=== PATIENT | female | born 1935 | race Caucasian/White ===

== ENCOUNTER → 2017-02-01 | Outpatient (CLI) | payer OTHER, MEDICARE ==
[~2017-02-01] MED LIST: AMLO2.5T PO; BNC/40 PO; CALC600T9 PO; CHOL20007 PO; CRS10 PO; CYAN100020 PO; PARO10TA PO
--- NOTE | 2017-02-01 16:09 | MAMMOGRAPHY REPORT ---
BILATERAL DIGITAL SCREENING MAMMOGRAM WITH CAD: 02/01/2017 CLINICAL HISTORY: Routine screening. Patient has no complaints. TECHNIQUE: Current study was also evaluated with a Computer Aided Detection (CAD) system. Bilateral CC and MLO views were obtained. COMPARISON: Comparison is made to exams dated: 12/14/2014 ultrasound, 12/14/2014 mammogram - [facility], 10/05/2014 mammogram, 01/01/2014 mammogram, 07/13/2013 mammogram, and 06/25/2013 mamm ogram. BREAST COMPOSITION: There are scattered areas of fibroglandular density in both breasts. FINDINGS: No suspicious masses, calcifications, or areas of architectural distortion are noted in ei ther breast. There has been no significant interval change compared to prior exams. Scattered bilater al benign-appearing calcifications are not significantly changed. A biopsy marker clip is again note d in the left breast. IMPRESSION: ACR BI-RADS CATEGORY 2: BENIGN There is no mammographic evidence of malignancy. A 1 year screening mammogram is recommended. The pa tient will receive written notification of the results. Approximately 10% of breast cancers are not detected with mammography. A negative mammographic report should not delay biopsy if a clinically suggestive mass is present. Bianca Prescott M.D. /:02/01/2017 14:34:11 Fiberglass Machine Operator: Rama Galvan, [facility] letter sent: Normal 1/2 BI-RADS Code: ACR BI-RADS Category 2: Benign
== END | disposition home or self-care (01) ==
LOC: C.MAMM 10:15
PROVIDERS: ATTEND Obstetrics & Gynecology
DX: Z12.31 Encounter for screening mammogram for malignant neoplasm of breast (principal)

== ENCOUNTER 2017-05-26 15:52 | Emergency (ER) | payer OTHER, MEDICARE ==
[~2017-05-26] VITALS: Ht 157.5 cm; Wt 69.0 kg
[2017-05-26 16:00] VITALS: TEMP 36.6; Ht 157.5 cm; Wt 69.0 kg
--- NOTE | 2017-05-26 16:37 | DIAGNOSTIC IMAGING REPORT ---
R WRIST MIN 3 VIEWS ROUTINE CLINICAL HISTORY: Right wrist pain. Fall 3 weeks ago. COMPARISON: None FINDINGS: A 4 mm cyst within the scaphoid is noted. There is severe osteophytosis of the right first carpometacarpal articulation and the triscaphe joint. No acute fracture within the right wrist is identified. IMPRESSION: 1. No acute fracture or dislocation within the right wrist. 2. 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 Electronically signed by: Dale Alves M.D. 05/26/2017 4:36 PM Dictated Date/Time: 05/26/2017 4:34 PM
--- NOTE | 2017-05-26 16:39 | DIAGNOSTIC IMAGING REPORT ---
R HAND MIN 3 VIEWS ROUTINE CLINICAL HISTORY: R wrist pain x 3 days, no injury other than fall 3 w ago COMPARISON: None FINDINGS: No acute fracture is identified. There is marked joint space narrowing with osteophytosis within multiple interphalangeal joints of the right hand. This favors osteoarthritis. A few soft tissue calcifications are noted. IMPRESSION: 1. No acute fracture or dislocation within the right hand. 2. Severe osteoarthritis within multiple interphalangeal joints of the right hand. At several articulations, the appearance raises the possibility of erosive osteoarthritis. Electronically signed by: Dale Alves M.D. 05/26/2017 4:38 PM Dictated Date/Time: 05/26/2017 4:36 PM
--- NOTE | 2017-05-26 17:03 | EMERGENCY ROOM VISIT NOTE ---
History First contact with patient: 16:03 Chief Complaint: WRIST PAIN Stated Complaint: CANNOT LIFT RIGHT WRIST History of Present Illness The patient is a 81 year old female who presents to the Emergency Room via private vehicle accompanied by male with complaints of "cannot lift right wrist ". The patient states that 3 weeks ago she suffered a fall where she may have struck her right wrist. She notes no pain then, but 3 days ago with no inciting cause she began with right-sided wrist pain at the medial aspect of the distal right forearm. She rates the overall pain an 8/10. She notes it is worse with movements. She notes maybe perhaps a little swelling. She denies any history of gout, fevers, chills, redness. She denies any numbness or weakness. Review of Systems A complete 6-point Review of Systems was discussed with the patient, with pertinent positives and negatives listed in the History of Present Illness. All remaining Review of Systems questions can be considered negative unless otherwise specified. Past Medical/Surgical History Diabetes, Stomach problems Family History DM, Heart disease, CA Social History Smoking Status: Never Smoker Pt. lives locally with family. Current/Historical Medications Scheduled Amlodipine (Norvasc), 2.5 MG PO QAM Calcium Carbonate-Vitamin D (Calcium + D), 1 TAB PO LUNCH Cholecalciferol (Vitamin D3), 1 TAB PO DAILY Cyanocobalamin (Vitamin B12), 1 TAB PO DAILY Olmesartan Medoxomil (Benicar), 40 MG PO QAM Paroxetine Hcl (Paxil), 10 MG PO QAM Rosuvastatin Calcium (Crestor), 10 MG PO Q2D Physical Exam Vital Signs Date Time Temp Pulse Resp B/P (MAP) Pulse Ox O2 Delivery O2 Flow Rate FiO2 05/26/17 16:00 36.6 80 18 147/82 92 Room Air Physical Exam VITAL SIGNS - Vital signs and nursing notes were reviewed. Stable, GENERAL - 81-year-old female appearing her stated age who is in no acute distress. Communicates well with provider and answers questions appropriately. SKIN - Without rashes. R wrist unremarkable. EXTREMITIES - R wrist tenderness overlying ulnar styloid region extending through 5th metacarpal proximally. Good nutrition instructor strength. No proximal forearm or distal hand tenderness. +5/5 strength noted in UE/LE bilaterally. She is neurovascularly intact in the right hand and forearm. Full range of motion, with slight decrease ability to ulnar deviate and radial deviate secondary to pain. Medical Decision & Procedures ER Provider Diagnostic Interpretation: R HAND MIN 3 VIEWS ROUTINE CLINICAL HISTORY: R wrist pain x 3 days, no injury other than fall 3 w ago COMPARISON: None FINDINGS: No acute fracture is identified. There is marked joint space narrowing with osteophytosis within multiple interphalangeal joints of the right hand. This favors osteoarthritis. A few soft tissue calcifications are noted. IMPRESSION: 1. No acute fracture or dislocation within the right hand. 2. Severe osteoarthritis within multiple interphalangeal joints of the right hand. At several articulations, the appearance raises the possibility of erosive osteoarthritis. Electronically signed by: Dale Alves M.D. 05/26/2017 4:38 PM Dictated Date/Time: 05/26/2017 4:36 PM R WRIST MIN 3 VIEWS ROUTINE CLINICAL HISTORY: Right wrist pain. Fall 3 weeks ago. COMPARISON: None FINDINGS: A 4 mm cyst within the scaphoid is noted. There is severe osteophytosis of the right first carpometacarpal articulation and the triscaphe joint. No acute fracture within the right wrist is identified. IMPRESSION: 1. No acute fracture or dislocation within the right wrist. 2. 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 Electronically signed by: Dale Alves M.D. 05/26/2017 4:36 PM Dictated Date/Time: 05/26/2017 4:34 PM Medical Decision Patient was seen and evaluated as above. She presents to us today with right hand/wrist pain. It is reproducible on exam. Palpation and certain passive active range of motion movements of the right wrist. No evidence of DVT. No evidence of gout or infection. This appears to be ligamentous or perhaps bone in nature. X-ray results as above. No acute fracture. Severe degenerative changes. I suspect ligamentous sprain. She is to follow with orthopedics. It is also possible she is experiencing pain secondary to osteoarthritis. Orthopedic number provided for her to call to arrange follow-up. She was given a wrist lacer. I believe that a short course of immobilization will be beneficial. She was also seen by the attending physician. She was educated upon management, educated upon worrisome symptoms in which to return, had questions and provided discharge, and was discharged home in good condition. In the evaluation and treatment of this patient, the following differential diagnoses were considered: Wrist Sprain, Wrist Fracture, Wrist Dislocation, Scapholunate Dissociation, Carpal Fracture, Metacarpal Fracture, Radial Styloid Process Fracture, Ulnar Styloid Process Fracture, or Carpal Tunnel Syndrome. Patient medication list was reviewed. She was found to be hypertensive which I believe secondary to situation. Impression Primary Impression: Wrist pain, right Departure Information Dispostion Home / Self-Care Condition GOOD Referrals Jeremy Harkins M.D. (PCP) Christian Yao M.D. Patient Instructions My [facility] Additional Instructions You have been treated in the Emergency Department for Wrist Pain. For pain control, you can use the following [id number] medicines : - Regular strength (325mg/tab) Tylenol (acetaminophen) 2 tabs every 4-6 hours as needed. Do not exceed 12 tablets in a 24 hour period. Avoid taking more than 3 grams (3000 mg) of Tylenol per day. This includes any other sources of acetaminophen you may take on a regular basis. If this is a recent injury (<24 hrs), ice can be applied to the area of pain for the first 3 days to help decrease pain and inflammation. You have been provided the number for an Orthopaedic Surgeon. You should call this number as soon as possible to establish a follow-up visit from today's Emergency Department visit. Keep the brace/splint in place until evaluated by Orthopedics. Return to the Emergency Department if your current symptoms worsen despite treatment course outlined above, or if you develop any of the following symptoms : intractable pain despite aforementioned treatment course or new onset of numbness or tingling of the fingers. R HAND MIN 3 VIEWS ROUTINE CLINICAL HISTORY: R wrist pain x 3 days, no injury other than fall 3 w ago COMPARISON: None FINDINGS: No acute fracture is identified. There is marked joint space narrowing with osteophytosis within multiple interphalangeal joints of the right hand. This favors osteoarthritis. A few soft tissue calcifications are noted. IMPRESSION: 1. No acute fracture or dislocation within the right hand. 2. Severe osteoarthritis within multiple interphalangeal joints of the right hand. At several articulations, the appearance raises the possibility of erosive osteoarthritis. R WRIST MIN 3 VIEWS ROUTINE CLINICAL HISTORY: Right wrist pain. Fall 3 weeks ago. COMPARISON: None FINDINGS: A 4 mm cyst within the scaphoid is noted. There is severe osteophytosis of the right first carpometacarpal articulation and the triscaphe joint. No acute fracture within the right wrist is identified.
[2017-05-26 17:13] VITALS: BP 133/82; PULSE 80; O2SAT 96
== END 2017-05-26 17:15 | disposition home or self-care (01) ==
LOC: C.EDB 15:53 → C.EDD 17:15
DX: M25.531 Pain in right wrist (principal); M19.031 Primary osteoarthritis, right wrist; M18.11 Unilateral primary osteoarthritis of first carpometacarpal joint, right hand; E11.9 Type 2 diabetes mellitus without complications; Z83.3 Family history of diabetes mellitus

== ENCOUNTER 2017-10-10 12:05 | Emergency (ER) | payer OTHER, MEDICARE ==
[~2017-10-10] VITALS: Ht 152.4 cm; Wt 67.5 kg
[2017-10-10 12:08] VITALS: TEMP 36.9; Ht 152.4 cm; Wt 67.5 kg
[2017-10-10] MEDS ORDERED: PARO20TA PO (12:36)
[2017-10-10] MEDS ORDERED: ACETAMINOPHEN 500 MG TAB ONE (12:41)
--- NOTE | 2017-10-10 12:42 | DIAGNOSTIC IMAGING REPORT ---
L WRIST W/NAVICULAR MIN 3 VIEWS HISTORY: 82 years-old Female LEFT WRIST INJUR acute left wrist pain COMPARISON: Left hand radiographs 06/02/2015 TECHNIQUE: 4 views of the left wrist FINDINGS: There is an acute comminuted mildly impacted fracture of the distal radial metaphysis with fracture lines extending into both the radiocarpal and distal radioulnar joints. There is 9 mm dorsal displacement with apex volar angulation of 25 degrees. Acute minimally displaced fracture involves the base of the ulnar styloid with mild apex volar regulation. The bones appear mildly demineralized. No additional acute fracture or dislocation identified. Moderate soft tissue swelling about the distal forearm and wrist. Subcortical cystic changes about the scaphoid. Moderate to severe osteoarthritis about the first carpal metacarpal joint. IMPRESSION: 1. Acute comminuted displaced, angulated and mildly impacted fracture of the distal radius. 2. Acute minimally displaced and angulated fracture of the ulnar styloid. The above report was generated using voice recognition software. It may contain grammatical, syntax or spelling errors. Electronically signed by: Akil Calzada M.D. 10/10/2017 12:41 PM Dictated Date/Time: 10/10/2017 12:37 PM
--- NOTE | 2017-10-10 12:45 | EMERGENCY ROOM VISIT NOTE ---
ED Visit Note First contact with patient: 12:11 CHIEF COMPLAINT: Left wrist injury HISTORY OF PRESENT ILLNESS: This 82-year-old female patient presents to the emergency department, ambulatory, complaining of pain in the left wrist after fall on outstretched hand. Patient states she was outside in her garden when she stood up, tripped over her own feet, and fell. The patient is not able to move their wrist. The patient states the pain is sharp and 10/10. No laceration , no weakness. No numbness or tingling. The patient denies any other injury. The patient is able to move their fingers and elbow without difficulty. The patient has not had a previous fracture to this wrist. The patient has taken nothing for the pain. REVIEW OF SYSTEMS: A 6 system review of systems was performed with positives and pertinent negatives in the HPI. ALLERGIES: None MEDICATIONS: Amlodipine, calcium, vitamin D, vitamin B12, Benicar, Paxil, Crestor PMH: Hypertension, anxiety, hyperlipidemia SOCIAL HISTORY: The patient lives locally with family. She denies drug, alcohol , tobacco use. PHYSICAL EXAM: Vital Signs: Reviewed Nurse's notes, vital signs stable. GENERAL : This is an 82-year-old white female, in no acute distress, but appears to be in pain, well-developed, well-nourished. NEURO: Alert and oriented to person place and time. Normal sensation to light and sharp touch. MUSCULOSKELETAL: There is a moderate deformity of the left wrist. There is tenderness and edema over the distal radius and ulna. There is no snuff box tenderness. Range of motion is limited due to pain. There is no tenderness of the elbow, hand or fingers. Research Computing Specialist strength 4/5. Radial pulse 2+. SKIN: Normal and intact. The hand is warm and well perfused with capillary refill less than 2 seconds. RADIOLOGY: L WRIST W/NAVICULAR MIN 3 VIEWS HISTORY: 82 years-old Female LEFT WRIST INJUR acute left wrist pain COMPARISON: Left hand radiographs 06/02/2015 TECHNIQUE: 4 views of the left wrist FINDINGS: There is an acute comminuted mildly impacted fracture of the distal radial metaphysis with fracture lines extending into both the radiocarpal and distal radioulnar joints. There is 9 mm dorsal displacement with apex volar angulation of 25 degrees. Acute minimally displaced fracture involves the base of the ulnar styloid with mild apex volar regulation. The bones appear mildly demineralized. No additional acute fracture or dislocation identified. Moderate soft tissue swelling about the distal forearm and wrist. Subcortical cystic changes about the scaphoid. Moderate to severe osteoarthritis about the first carpal metacarpal joint. IMPRESSION: 1. Acute comminuted displaced, angulated and mildly impacted fracture of the distal radius. 2. Acute minimally displaced and angulated fracture of the ulnar styloid. The above report was generated using voice recognition software. It may contain grammatical, syntax or spelling errors. Electronically signed by: Akil Calzada M.D. 10/10/2017 12:41 PM Dictated Date/Time: 10/10/2017 12:37 PM EMERGENCY DEPARTMENT COURSE: I examined the patient. An X-ray of the left wrist was reviewed by myself and radiologist and showed acute displaced, angulated fractures of the distal radius and ulnar styloid. I discussed these findings with the patient at bedside. She initially had declined offers for pain medication, but does request Tylenol after the x-rays. I discussed the case with Dr. Lim who reviewed the x-rays and recommended a sugar tong splint and close orthopedic follow-up outpatient. A sugar tong Ortho-Glass splint was placed under my direction and the position was satisfactory. Neurovascular status rechecked and intact. The patient was discharged home in good condition. I attest that I have personally reviewed the patient's current medication list. Patient was found to have normal blood pressure on screening and does not require follow-up. Etiologies such as soft tissue injury, fracture, dislocation, neurovascular compromise, compartment syndrome, as well as others were entertained. DIAGNOSIS: left Distal radius and ulna fracture The chart was completed utilizing [employer] voice recognition software. Grammatical errors, random word insertions, pronoun errors, and incomplete sentences are an occasional consequence of this system due to software limitations, ambient noise, and hardware issues. Any formal questions or concerns about the content, text, or information contained within the body of this dictation should be directly addressed to the provider for clarification. Current/Historical Medications Scheduled Amlodipine (Norvasc), 2.5 MG PO QAM Calcium Carbonate-Vitamin D (Calcium + D), 1 TAB PO LUNCH Cholecalciferol (Vitamin D3), 1 TAB PO DAILY Cyanocobalamin (Vitamin B12), 1 TAB PO DAILY Olmesartan Medoxomil (Benicar), 40 MG PO QAM Paroxetine Hcl (Paxil), 20 MG PO DAILY Rosuvastatin Calcium (Crestor), 10 MG PO Q2D Scheduled PRN Oxycodone Ir (Roxicodone Ir), 1 TAB PO Q4H PRN for Pain Allergies Coded Allergies: No Known Allergies (Unverified , 10/10/17) Vital Signs Date Time Temp Pulse Resp B/P (MAP) Pulse Ox O2 Delivery O2 Flow Rate FiO2 10/10/17 13:54 72 16 161/101 96 10/10/17 12:08 36.9 88 18 152/80 93 Room Air Medications Administered Medications (Trade) Dose Ordered Sig/Ralph Route Start Time Stop Time Status Last Admin Dose Admin Acetaminophen (Tylenol Tab) 1,000 mg STK-MED ONCE .ROUTE 10/10/17 12:41 10/10/17 12:42 DC 10/10/17 12:50 1,000 MG Departure Information Impression Primary Impression: Fracture of distal radius and ulna Dispostion Home / Self-Care Condition GOOD Prescriptions Oxycodone Ir (Roxicodone Ir) 5 Mg Tab 1 TAB PO Q4H Y for Pain, #15 TAB For Initial Treatment Prov: Geri Clemente, MARCOS 10/10/17 Referrals Jeremy Harkins M.D. (PCP) Kevin Ludwig MD Patient Instructions ED Fx Forearm Radius Ulna No Redu Requ, ED Splint Care Fiberglass, [facility] Additional Instructions You were seen in the emergency department today for a fracture of your distal radius and ulna. These are the forearm bones. Oxycodone (OxyIR) 5mg: Take 1 pill every four to six hours as needed for breakthrough pain. Avoid alcohol, operating machinery or dangerous equipment, working on ladders or roofs, DRIVING, or situations where being under the influence may be dangerous. It is recommended to use an [id number]-[id number] stool softener such as Colace, 100mg twice daily while taking this medication to avoid constipation. Acetaminophen(Tylenol) may be used for fever or pain. Use 1000mg every six hours as needed. Avoid using more than 3000mg in a 24 hour period. Ice compresses for 20 minutes at a time four times daily for 2-3 days. Use the sling as instructed. Remove your arm from the sling 4-6 times a day and move all the joints around to keep them loose. Rest and elevate your injury. Do not get the splint wet. If your splint feels excessively tight, you have worsening pain, develop numbness or tingling, or your digits appear blue, loosen the regla wrap. Then reapply the regla wrap gently without removing the splint. If your symptoms are not quickly relieved return to the ER for re- evaluation. Return to the ER immediately for any numbness, tingling, severe pain, extreme swelling in the extremity or as needed. Call [facility], [phone], when you leave here today to arrange follow up for your injury. Problem Qualifiers Primary Impression: Fracture of distal radius and ulna Encounter type: initial encounter Fracture type: closed Laterality: left Qualified Codes: S52.502A - Unspecified fracture of the lower end of left radius, initial encounter for closed fracture; S52.602A - Unspecified fracture of lower end of left ulna, initial encounter for closed fracture
--- NOTE | 2017-10-10 13:24 | EMERGENCY ROOM VISIT NOTE ---
ED Visit Note First contact with patient: 12:11 I did evaluate and examine this patient myself. I did guide management for the patient. I agree with the PA's assessment as discussed. Please see the PAs dictation for further details. I did independently review the x-rays. She does have a distal radial fracture as well as an ulnar styloid fracture. The case was discussed with orthopedics who recommended a sugar tong splint and outpatient follow-up.
[2017-10-10] MEDS ORDERED: OXYC1TAB3 PO (13:33)
[2017-10-10 13:54] VITALS: BP 161/101; PULSE 72; O2SAT 96
== END 2017-10-10 13:56 | disposition home or self-care (01) ==
LOC: C.EDB 12:06 → C.EDD 13:56
DX: S52.502A Unspecified fracture of the lower end of left radius, initial encounter for closed fracture (principal); S52.612A Displaced fracture of left ulna styloid process, initial encounter for closed fracture; W18.09XA Striking against other object with subsequent fall, initial encounter; Y92.017 Garden or yard in single-family (private) house as the place of occurrence of the external cause; I10 Essential (primary) hypertension; F41.9 Anxiety disorder, unspecified; E78.5 Hyperlipidemia, unspecified; Z79.899 Other long term (current) drug therapy

== ENCOUNTER → 2017-12-04 | Outpatient (CLI) | payer OTHER, MEDICARE ==
[~2017-12-04] MED LIST changes: +OXYC-90 PO; -PARO10TA PO; +PARO20TA PO
--- NOTE | 2017-12-04 14:53 | DIAGNOSTIC IMAGING REPORT ---
CHEST 2 VIEWS ROUTINE HISTORY: Chronic iridocyclitis. Assess for tuberculosis. COMPARISON: None. FINDINGS: Mild levoscoliosis of the thoracic spine. Old, healed left-sided rib fractures. No pleural effusions. No pneumothorax. The heart is normal in size. No focal lung consolidations to suggest pneumonia. No evidence for pulmonary edema. 3.4 cm round lucent focus within the base of the left lower lobe. This favors a a small bulla or pneumatocele. IMPRESSION: 1. No acute process within the chest. 2. There is a 3.4 cm round lucent focus within the base of the left lower lobe. This favors a a small bulla or pneumatocele. Electronically signed by: Kvng San M.D. 12/04/2017 2:52 PM Dictated Date/Time: 12/04/2017 2:49 PM
== END | disposition home or self-care (01) ==
LOC: C.RADBC 14:17
PROVIDERS: ATTEND Ophthalmology
DX: H20.11 Chronic iridocyclitis, right eye (principal)

== ENCOUNTER 2022-08-22 05:14 | Observation (INO) ==
--- NOTE | 2022-08-17 09:45 | Anesthesiology Consultation ---
Date of Service August 17, 2022 Assessment & Plan (1) Encounter for pre-operative examination: - check BSG am DOS. - PCP clearance 08/08/22: "...is patient medically cleared for surgery...yes...preoperative risk assessment note...right total knee replacement...acceptable risk for the listed procedure..." - Case discussed with Dr. Birmingham who advised patient can proceed at current status, does not need further testing or evaluation from his standpoint. - COVID screening: Per set up inspector on 08/16/2022: Travel screen negative, no known COVID-19 positive contacts or current COVID-19 related symptoms in past 2 weeks. To surgeon's discretion if preop COVID testing is needed. - Outpatient joint assessment: Patient is currently scheduled for inpatient pathway. If re-evaluated pending system levels during current pandemic/surgeon requests outpatient pathway, patient is not recommended candidate for outpatient joint program from anesthesia standpoint. Chart Review Chart Review: Acceptable Risk for Surgery and Patient NOT seen in Pre Admission Testing History Surgery Operation Date: 08/22/22 09:20 Proposed Procedures p Right Total Knee Arthroplasty - Darinel Barr MD Height/Weight Height: 5 ft Weight: 62.142 kg Allergies Allergy/AdvReac Type Severity Reaction Status Date / Time [id number] Reductase Allergy Intermediate itchy Verified 08/16/22 15:03 Inhibitor amlodipine Allergy Intermediate itching,magdalena Uncoded 08/17/22 09:49 ma Medications Home Medications Medication Instructions Recorded Confirmed Last Taken albuterol sulfate 90 mcg/actuation 2 puff inhalation Q6H PRN Wheezing 07/19/21 08/16/22 Unknown aerosol inhaler alprazolam 0.25 mg tablet 0.25 mg PO DAILY PRN Anxiety 07/19/21 08/16/22 Unknown cyclobenzaprine 5 mg tablet 5 mg PO DAILY PRN Spasms 07/19/21 08/16/22 Unknown diphenhydramine 25 2 tab PO HS PRN Sleep 07/19/21 08/16/22 Unknown mg-acetaminophen 500 mg tablet (Tylenol PM Extra Strength) duloxetine 60 mg capsule,delayed 60 mg PO QAM 07/19/21 08/16/22 Unknown release (Cymbalta) ezetimibe 10 mg tablet (Zetia) 10 mg PO QAM 07/19/21 08/16/22 Unknown losartan 50 mg tablet 50 mg PO QAM 07/19/21 08/16/22 Unknown prednisolone acetate 1 % eye 1 drp ophthalmic (eye) DAILY 07/19/21 08/16/22 Unknown drops,suspension vitamin E 200 unit capsule 200 unit PO QAM 07/19/21 08/16/22 Unknown pantoprazole 40 mg tablet,delayed 40 mg PO DAILY PRN Acid Reflux 09/18/21 08/16/22 Unknown release cholecalciferol (vitamin D3) 50 50 mcg PO QAM 04/06/22 08/16/22 Unknown mcg (2,000 unit) tablet (Vitamin D3) cyanocobalamin (vitamin B-12) 500 500 mcg PO QAM 04/06/22 08/16/22 Unknown mcg tablet denosumab 60 mg/mL subcutaneous 60 mg subcut DIRECTED 04/06/22 08/16/22 Unknown syringe (Prolia) fluticasone propionate 50 1 spray intranasal Q12H PRN 04/06/22 08/16/22 Unknown mcg/actuation nasal Congestion spray,suspension Past Medical History Medical History (Updated 08/17/22 @ 09:49 by Sarah Montiel PA-C) Anxiety Asthma using more often in winter due to cold air CKD (chronic kidney disease) stage 3, GFR 30-59 ml/min Degenerative disc disease, cervical Diabetes diet controlled 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 No other treatment needed Osteoporosis Past Family History Family History Mother Cancer Breast Other Heart disease Past Surgical History Surgical History History of cataract surgery bilat History of colonoscopy History of dilatation and curettage several History of lumpectomy of left breast History of surgery on wrist left Social History Smoking Status: Never smoker Do You Dip or Chew Tobacco: No Hx Alcohol Use: Yes Alcohol type: wine alcohol intake frequency: a few times a week Hx Substance Use: No substance use type: does not use Lab Results Anesthesia Preop Results Results Anesthesia Widget: WBC 10.41 K/ul (4.8-10.8) 08/06/22 Hgb 11.4 g/dl (12.0-16.0) L 08/06/22 Hct 35.0 % (37.0-47.0) L 08/06/22 Plt 384 K/uL (130-400) 08/06/22 Na 141 mmol/L (136-145) 08/06/22 K 3.9 mmol/L (3.5-5.1) 08/06/22 Cl 105 mmol/L (98-107) 08/06/22 CO2 29 mmol/L (21-32) 08/06/22 BUN 27 mg/dl (6-23) H 08/06/22 Creat 1.56 mg/dl (0.6-1.2) H 08/06/22 Glucose Level 80 mg/dl (70-99(Fasting)) 08/06/22 PT 10.5 Seconds (9.0-12.0) 08/06/22 PTT 24.6 Seconds (21.0-31.0) 08/06/22 INR 1.0 (0.9-1.1) 08/06/22 TSH 1.548 uIu/ml (0.300-4.500) 06/21/22 Urine Color Yellow 08/06/22 Urine Appearance Clear (Clear) 08/06/22 Urine pH 5.5 (4.5-7.5) 08/06/22 Urine Specific Bixby 1.020 (1.000-1.030) 08/06/22 Urine Protein Trace (Negative) H 08/06/22 Urine Glucose (UA) Negative (Negative) 08/06/22 Urine Ketones Negative (Negative) 08/06/22 Urine Blood Negative (Negative) 08/06/22 Urine Nitrite Negative (Negative) 08/06/22 Urine Bilirubin Negative (Negative) 08/06/22 Urine Urobilinogen Negative (Negative) 08/06/22 Urine Leukocyte Esterase Trace (Negative) H 08/06/22 Urine WBC (Auto) 1-5 /hpf (0-5) 08/06/22 Urine RBC (Auto) 0-4 /hpf (0-4) 08/06/22 Urine Hyaline Casts (Auto) 1-5 /lpf (0-5) 08/06/22 Urine Epithelial Cells (Auto) >30 /lpf (0-5) H 08/06/22 Urine Bacteria (Auto) Negative (Negative) 08/06/22 Blood Type A Positive 08/06/22 Antibody Screen NEGATIVE 08/06/22 Testing Electrocardiogram Date: 06/21/22 Poor data quality Sinus rhythm with frequent PVCs, rate 90 bpm Inferior infarct, cited on or before 04/16/22 Cannot rule out anterior infarct, age undetermined Chest X-Ray Date: 04/16/22 Cardiac silhouette is enlarged. No pneumothorax or overt pulmonary edema. There is unchanged chronic blunting of the costophrenic angles. Stable 3.4 cm benign appearing bulla of the left lung base. Chronic interstitial coarsening of the lung bases. No airspace consolidation typical for pneumonia. Chronic left lateral rib deformities. Degenerative changes of the shoulders and spine. Hiatal hernia. IMPRESSION: No acute process. Echocardiogram Date: 07/10/22 EF 60-64% Normal LV wall motion Grade I diastolic dysfunction Basal septum is thickened and angulated consistent with sigmoid septum Mild cLVH Mild aortic valve sclerosis Mild mitral regurgitation Cervical Spine Date: 06/21/22 CT Multilevel degenerative changes include severe disc space narrowing at C5-C6 and C6-C7. Moderate multilevel spondylitic spurring with posterior disc osteophyte complex formations. Moderate to severe multilevel facet arthrosis. Multilevel neural foraminal narrowing. No acute cervical spine fracture or subluxation. The cervical soft tissues appear unremarkable 1.5 cm right-sided thyroid nodule. The visualized lung apices appear clear. IMPRESSION: No acute cervical spine fracture or subluxation identified. Other Testing Head CT 06/21/22 No acute intracranial abnormality or calvarial fracture.
[2022-08-22] MEDS ORDERED: LR 60ML/HR IV SCH (06:00)
[2022-08-22] MEDS ORDERED: ceFAZolin 2000MG 2,000 MG/15 ML SYR IV SCH (06:00)
[2022-08-22] MEDS ORDERED: TRANEXAMIC ACID 1,000 MG **IV Pre-op IV SCH (06:00)
[2022-08-22] MEDS ORDERED: ROPIVACAINE 0.5% HCL/PF 150 MG, BUPIVACAINE 0.75% MPF 20 ML, EPINEPHrine 0.15 MG, Ketor... INFIL SCH (06:00)
[2022-08-22] MEDS ORDERED: SODIUM CHLORIDE 0.9% 1000ML IV SCH (06:00)
[2022-08-22] MEDS ORDERED: BUPIVACAINE 0.5 % 5 MG/1 ML PF 10ML VIAL ONE (06:17)
[2022-08-22] MEDS ORDERED: ROPIVACAINE 0.5% 5 MG/ML 30 ML VIAL ONE (06:18)
--- NOTE | 2022-08-22 06:31 | History & Physical Bridge Note ---
Date of Service August 22, 2022 History & Physical Bridge Note I have examined the patient, reviewed the History & Physical and in the interval since the performance of the History & Physical I have noted the following changes of clinical significance:consent obtained/site verified/ no changes noted
[2022-08-22] MEDS ORDERED: MIDAZOLAM HCL 1 MG/ML 2ML VIAL ONE ×3 (06:35→15:17)
[2022-08-22] MEDS ORDERED: fentaNYL citrate PF 100 MCG/2 ML VIAL IV PRN (06:41)
[2022-08-22] MEDS ORDERED: ONDANSETRON INJ 2 MG/ML 2 ML VIAL IV PRN ×2 (06:41→10:05)
[2022-08-22] MEDS ORDERED: ATROPINE SULFATE 0.1 MG/ML 10ML SYR IV PRN (06:41)
[2022-08-22] MEDS ORDERED: ePHEDrine sulfate 50 MG/ML AMP IV PRN (06:41)
[2022-08-22] MEDS ORDERED: ORTHO JOINT ANESTHETIC ONE (06:45)
[2022-08-22] MEDS ORDERED: PROPOFOL IV EMULSION 10 MG/ML 20 ML VIAL IV ONE (07:39)
--- NOTE | 2022-08-22 08:25 | Post Operative Brief Note ---
Immediate Post Op Note v1 Date of Surgery August 22, 2022 Pre & Post Diagnosis Operation Date: 08/22/22 07:00 <No data on this case meets the specified criteria> I identified the patient and participated in the time-out.: Yes Procedure Operation Date: 08/22/22 07:00 <No data on this case meets the specified criteria> Surgeon Darinel Barr MD [employer] [facility] Estimated Blood Loss 25 Findings Consistent with Post-Op Diagnosis
--- NOTE | 2022-08-22 08:34 | Operative Report ---
Post Operative Report Pre & Post Diagnosis Operation Date: 08/22/22 07:00 Pre-Op Diagnosis: Right Knee Degenerative Joint Disease Post-Op Diagnosis: Right Knee Degenerative Joint Disease I identified the patient and participated in the time-out.: Yes Procedure Operation Date: 08/22/22 07:00 Actual Procedures p Right Total Knee Arthroplasty, Cemented(Right) - Darinel Barr MD Surgeon ZAY Barr MD [employer] Karen RODRÍGUEZ Estimated Blood Loss 25 Findings Consistent with Post-Op Diagnosis see operative report Specimens see operative report Drains none Complications none Disposition Accompanied Patient To Recovery: Yes Indications This 87 year old female presented the office with complaints of persisting right knee pain. She had tried conservative care measures without improvement. She elected to proceed with surgical intervention after being educated about potential risks and outcomes. Preoperative imaging was obtained. She was initially scheduled for this procedure in April but had to cancel and reschedule due to a significant fall. Description of Procedure The patient was given a spinal anesthetic and then was taken to the operating room where she was given sedation. She was prepped and draped in the usual sterile fashion. Please see Dr. Barr's operative report for specifics of the procedure. I was present for the entire case from initial patient positioning through final wound closure. Assistance was provided in tissue retraction, hemostasis, trial implant placement, final implant placement, and final wound closure. Patient was taken to the recovery room in satisfactory condition. I attest to the content of the Intraoperative Record and any orders documented therein. Any exceptions are noted below.
--- NOTE | 2022-08-22 08:48 | Operative Report (OR) ---
DATE OF PROCEDURE: 08/22/2022. SURGEON: Darinel Barr MD. SQL DATA ANALYST: HEATH Iraheta. No resident or fellow available. PREOPERATIVE DIAGNOSIS: Osteoarthritis, right knee, with varus deformity. POSTOPERATIVE DIAGNOSIS: Osteoarthritis, right knee, with varus deformity. OPERATION PERFORMED: Cemented right total knee replacement. PERIOPERATIVE SITUATION: Medically cleared female with intractable knee pain, has physical exam, x-r ay consistent with severe end-stage disease. SUMMARY OF IMPLANTS: Right size 2 posterior cruciate substituting tibial tray, size 2 rotating platf orm oval dome, 3-peg patella, size 38 tibial insert rotating platform size 2, 10 mm thick posterior c ruciate stabilizing two bags of Palacos G cement. DePuy J and J rotating platform total knee system. DESCRIPTION OF PROCEDURE: The patient was appropriately identified, site verified, consent verified. Antibiotics were confirmed as being given. The right lower extremity was prepped and draped in the usual routine fashion. There was no major flexion deformity, but she had a varus alignment. Once i t, was prepped and draped in usual routine fashion. Tourniquet was inflated to 275 mmHg after exsang uination of the limb with a rubber Esmarch bandage for a total of 46 minutes. Midline exposure was u tilized. Parapatellar arthrotomy performed. Synovectomy completed, osteophytes resected. Distal fe mur entered. Cruciates resected. Tibia was subluxated, menisci resected. Osteophytes were removed from the medial side of the femur and the tibia. Appropriate soft tissue release was performed media lly. Distal femur was then entered with drill bit and then the distal femur resected 12 mm, proximal tibia subluxated resected 4 mm, the extension gap was excellent. The femur was then sized between 2 and a 2.5 was measured. It was measured 2.5, cut 2 with no notching. The flexion gap was then chec ked, it was excellent. The tibia was a size 2 as well. The box cut was then made. Rotation was exc ellent. The tibia was then broached and reamed to a size #2. Trial spacer with a 10 revealed excelle nt tracking and excellent stability and mid range stability. The knee had range of motion from 0-120 degrees. The patella was then resected leaving about 13-14 mm. A seating hole made for the button and the button tracked well. The Orthomix was then injected all about the knee. The implants were t hen removed and soaked, the knee was soaked in Betadine for 2.5 minutes and then irrigated and then t he permanent cemented into position tibia, femur, and patella in that order. At 12 minutes, the tour niquet deflated. No major bleeding encountered at 14 minutes, the knee was flexed. No cement remova l required. Knee was irrigated. After the spacer was removed with the Pulsavac and then Betadine an d the permanent liner seated, knee reduced and closed at 40 degrees of flexion with #2 Vicryl, 2-0 Vi cryl and stainless steel clips. Appropriate dressing applied. The patient was transferred to [facility] ry room in satisfactory condition, having tolerated the procedure well. DVT prophylaxis per protocol . Bone pathology pending mobilized FELIPE. Job ID: [id number]
--- NOTE | 2022-08-22 08:55 | Progress Notes ---
SUBJECTIVE: Postop check status post right total knee replacement. The patient is resting comfortab ly in bed in the PACU. She denies any chest pain, shortness of breath, fever, chills, nausea, vomiti ng or headache. OBJECTIVE: VITAL SIGNS: Stable. She is afebrile. Wound dressing clean, dry and intact. Neurovascular check is limited by spinal. Toes were pink and warm. IMAGING: X-ray AP and lateral knee reveals excellent alignment of total knee replacement. Appropria te sizing. ASSESSMENT AND PLAN: Overall, doing well. Continue with care pathway and start Coumadin this kenny guillen Case management has been involved regarding potential placement. Discharge tomorrow. Job ID: [id number]
--- NOTE | 2022-08-22 09:10 | Discharge Summary (DS) ---
DATE OF ADMISSION: 08/22/2022. DATE OF POTENTIAL DISCHARGE: 08/23/2022. CHIEF COMPLAINT: Right knee pain. HISTORY OF PRESENT ILLNESS: Underwent elective right total knee replacement. To date, there have been no issues. REVIEW OF SYSTEMS: Reveals no major findings, chest pain, shortness of breath, fever, chills, nausea, vomiting or headache. PAST MEDICAL HISTORY: Remarkable for hypercholesterolemia, GERD, bilateral knee osteoarthritis, seborrheic keratosis, dermatitis, hypertension, history of melanoma, history of osteoporosis. PAST SURGICAL HISTORY: Include skin biopsies, wrist and eye surgery. ALLERGIES: AMLODIPINE AND STATINS. PREADMISSION MEDICATIONS: Include alprazolam, Cymbalta, albuterol, vitamins, cyanocobalamin, cyclobenzaprine, ezetimibe, losartan and vitamins. HOSPITAL COURSE: Uneventful, status post right total knee replacement. Continue with postoperative care pathway. Discharge per Byproducts Supervisor/Case Management. DVT prophylaxis per protocol. Follow up in 2 weeks for staple removal. Job ID: [id number] [facility]
--- NOTE | 2022-08-22 09:47 | Anesthesiology Progress Note ---
Date of Service August 22, 2022 Anesthesia Post Procedure Vital Signs Vital Signs: Temp Pulse Pulse Resp BP Pulse Ox O2 Del Method 08/22/22 09:30 97.5 F L 64 14 166/79 H 97 Room Air 08/22/22 09:20 65 18 132/77 97 Room Air 08/22/22 09:10 66 18 164/77 H 95 Room Air 08/22/22 09:00 65 13 145/70 H 100 Oxymask 08/22/22 08:50 65 17 151/70 H 100 Oxymask 08/22/22 08:40 68 21 140/77 100 Oxymask 08/22/22 08:32 97.3 F L 78 20 123/70 99 Oxymask 08/22/22 06:06 97.9 F 83 20 164/81 H 96 Room Air O2 Flow Rate 08/22/22 09:30 08/22/22 09:20 08/22/22 09:10 08/22/22 09:00 4 08/22/22 08:50 5 08/22/22 08:40 7 08/22/22 08:32 7 08/22/22 06:06 Transfer of Care Handoff Completed per policy Notes Mental Status: alert / awake / arousable and participated in evaluation Patient Amnestic to Procedure: Yes Nausea / Vomiting: adequately controlled Pain: adequately controlled Airway Patency, RR, SpO2: stable & adequate BP & HR: stable & adequate Hydration State: stable & adequate Neuraxial Anesthesia: was administered and sensory block is resolving Anesthetic Complications: no major complications apparent and Pt Satisfied with anesthetic care
[2022-08-22] MEDS ORDERED: NALOXONE HCL 0.4 MG/1 ML VIAL/CARP IV PRN (10:05)
[2022-08-22] MEDS ORDERED: ALPRAZolam 0.25 MG TABLET PO PRN (10:05)
[2022-08-22] MEDS ORDERED: ALBUTEROL HFA 8 GM INHALER INH PRN (10:05)
[2022-08-22] MEDS ORDERED: diphenhydrAMINE 50 MG/ML VIAL IV PRN (10:05)
[2022-08-22] MEDS ORDERED: HYDROmorphone INJ 0.5 MG/0.5 ML SYR IV PRN (10:05)
[2022-08-22] MEDS ORDERED: CYCLOBENZAPRINE HCL 5 MG TAB PO PRN (10:05)
[2022-08-22] MEDS ORDERED: bisacodyL 10 MG SUPP PR PRN (10:05)
[2022-08-22] MEDS ORDERED: SODIUM CHLORIDE 0.9% 1000ML 1,000 ML IV SCH (10:05)
[2022-08-22] MEDS ORDERED: METOCLOPRAMIDE HCL INJ 5 MG/ML 2 ML VIAL IV PRN (10:05)
[2022-08-22] MEDS ORDERED: FLUTICASONE PROPIONATE NA SPR 16 GM BTL NAE PRN (10:05)
[2022-08-22] MEDS ORDERED: MAGNESIUM HYDROXIDE SUSP 30 ML UDC PO PRN (10:05)
[2022-08-22] MEDS ORDERED: ALUMINUM/MAGNESIUM SUSP 30 ML UDC PO PRN (10:05)
--- NOTE | 2022-08-22 10:29 | XRay Report ---
XR knee RT 1 or 2V routine CLINICAL HISTORY: S/P R TKA COMPARISON: Right knee radiographs April 16, 2022. FINDINGS: Alignment of the total right knee arthroplasty is anatomic. There is no periprosthetic fra cture. There is no unexpected radiopaque foreign body. There are skin madelin. IMPRESSION: Expected findings following total right knee arthroplasty. ACT 112: Negative or not required by law. Electronically signed by: Dale Alves M.D. 08/22/2022 10:28 AM
[2022-08-22] MEDS: prednisoLONE acetate 1% OP SUSP 5 ML BTL OP SCH (11:18)
[2022-08-22] MEDS: LOSARTAN POTASSIUM 50 MG TAB PO SCH (11:19)
[2022-08-22] MEDS: EZETIMIBE 10 MG TABLET PO SCH (11:19)
[2022-08-22] MEDS: DULoxetine HCL 60 MG CAP PO SCH (11:19)
[2022-08-22] MEDS: MULTIVITAMIN TAB PO SCH (11:20)
[2022-08-22] MEDS: DOCUSATE SODIUM 100 MG CAP PO SCH ×2 (11:20→21:27)
[2022-08-22] MEDS: ACETAMINOPHEN 500 MG TAB PO SCH ×2 (13:44→21:27)
[2022-08-22] MEDS: KETOROLAC TROMETHAMINE 15 MG/ML VIAL IV SCH ×3 (13:48→22:23)
[2022-08-22] MEDS: ceFAZolin 2000MG 2,000 MG/15 ML SYR IV SCH ×2 (13:49→22:24)
[2022-08-22] MEDS ORDERED: ORTHO WARFARIN NOMOGRAM SCH (14:00)
[2022-08-22] MEDS ORDERED: TRANEXAMIC ACID / 0.7% NACL 1,000 MG/100 ML BAG IV SCH (14:45)
[2022-08-22] MEDS: oxyCODONE HCL IR 5 MG TAB (IMMEDIATE RELEASE) PO PRN (15:13)
[2022-08-22] MEDS ORDERED: WARFARIN SOD 5 MG TAB PO ONE (15:19)
[2022-08-22] MEDS: ASCORBIC ACID 500 MG TAB PO SCH (17:12)
[2022-08-22] MEDS: FERROUS GLUCONATE 324 MG TAB PO SCH (17:12)
[2022-08-22] MEDS ORDERED: SENNA 8.6 MG TAB PO SCH (21:00)
[2022-08-23 02:49] VITALS: TEMP 97.9
[2022-08-23] MEDS: KETOROLAC TROMETHAMINE 15 MG/ML VIAL IV SCH (04:35)
[2022-08-23] MEDS: oxyCODONE HCL IR 5 MG TAB (IMMEDIATE RELEASE) PO PRN (04:35)
[2022-08-23] MEDS: ACETAMINOPHEN 500 MG TAB PO SCH (04:36)
--- NOTE | 2022-08-23 06:37 | Progress Notes ---
SUBJECTIVE: Postoperative day #1, status post right total knee replacement. OBJECTIVE: The patient is sitting up in bed, comfortable. She denies any chest pain, shortness of b reath, fever, chills, nausea, vomiting or headache. She is very engaging with her conversation. Wound dressing clean, dry and intact. Neurovascular check femoral sciatic nerve is normal. She can do a straight leg raise. There is no s oiling over dressing. Calves are nontender. LABORATORY DATA: A.m. labs are pending. ASSESSMENT AND PLAN: Status post right total knee replacement. Prepare for discharge today. She is planning to be transferred to [facility] Please keep INR no greater than 2.2 when she is at [facility], perfect range would be 1.8. Coumadin dose per nomogram today before discharge. Job ID: [id number]
[2022-08-23 07:38] VITALS: O2SAT 95
[2022-08-23 07:38] LABS: Hematocrit (blood only) 25.8 % (37.0-47.0); Hemoglobin 8.5 g/dl (12.0-16.0); Mean Corpuscular Hemoglobin 31.3 pg (25.0-34.0); Mean Corpuscular Hgb Conc 32.9 g/dL (32.0-36.0); Mean Corpuscular Volume 94.9 fL (80.0-100.0); Mean Platelet Volume 10.8 fL (9.4-12.4); Platelet Count 259 K/uL (130-400); RDW Coefficient of Variation 13.3 % (11.5-14.5); RDW Standard Deviation 46.2 fL (36.4-46.3); Red Blood Count 2.72 M/uL (4.20-5.40)
[2022-08-23] MEDS: EZETIMIBE 10 MG TABLET PO SCH (07:45)
[2022-08-23] MEDS: ASCORBIC ACID 500 MG TAB PO SCH (07:46)
[2022-08-23] MEDS: FERROUS GLUCONATE 324 MG TAB PO SCH (07:46)
[2022-08-23] MEDS: DOCUSATE SODIUM 100 MG CAP PO SCH (07:46)
[2022-08-23] MEDS: LOSARTAN POTASSIUM 50 MG TAB PO SCH (07:47)
[2022-08-23] MEDS: DULoxetine HCL 60 MG CAP PO SCH (07:47)
[2022-08-23] MEDS: prednisoLONE acetate 1% OP SUSP 5 ML BTL OP SCH (07:47)
[2022-08-23] MEDS: MULTIVITAMIN TAB PO SCH (07:47)
[2022-08-23 07:58] LABS: BUN Creatinine Ratio 23.4 (10-20); Calcium 8.3 mg/dl (8.6-10.3); Creatinine Clr Calc Pharmacy 15.5 ml/min; Est GFR (Non-African American) 19.9 ml/min
[2022-08-23] MEDS ORDERED: dexAMETHasone 10 MG in SYRINGE 0 ML IV SCH (08:00)
[2022-08-23 08:08] LABS: INR 1.2 (0.9-1.1); Prothrombin Time 12.3 Seconds (9.0-12.0)
--- NOTE | 2022-08-23 08:49 | Orthopedic Progress Note ---
Date of Service August 23, 2022 Assessment & Plan (1) S/P total knee replacement using cement: Plan: The patient was seen in her room. Her dressings were changed by me. OLIVER hose stocking was applied. Dressing should remain in place until Saturday, at which time it can be changed if needed. Continue the knee immobilizer today and tomorrow. It may be discontinued on Saturday. Discharged to [facility] today after PT/OT Prescriptions for Coumadin and Percocet were sent to her pharmacy. Written discharge instructions were given. Follow-up in the office in 2 weeks as scheduled for staple removal Weight-bear as tolerated on the right leg. Use her walker when ambulating Call the office with any other concerns. Admission and Anticipated Discharge Date Admission Date: August 22, 2022 Subjective The patient is seen in her room this morning. She is in good spirits. She states she did not sleep much last night due to interruptions. She is having very little pain. She is looking forward to discharge today to [facility]. Denies any chest pain, shortness of breath, nausea, vomiting, or significant knee pain. She has already finished her breakfast. No other complaints. Review of Systems Review of Systems: Unchanged from yesterday. Physical Exam Physical Exam: General: Well-developed, well-nourished, elderly female, in no acute distress. Sitting in bed.. Alert and oriented. Conversive. Skin: Warm and dry with good turgor. No rashes. Postsurgical dressing is in place on the right leg. Upon removal, postsurgical dressings have scant dried drainage. There is no active bleeding from her surgical wound. Clotilde are in place. Wound edges are well approximated. No significant edema or ecchymosis. Musculoskeletal: The patient is able to perform straight leg raise. She has full terminal extension. Flexion to around 45 degrees without difficulty. She has intact motor function to the ankle and toes. Neurologic: Gross sensation is intact across all aspects of the right leg by soft touch. Peripheral pulses are 2+. Results & Data Vital Signs (Past 12 Hours) Vital Signs Temp Pulse Pulse Resp BP BP Pulse Ox 08/23/22 07:37 36.6 C 60 16 119/70 95 08/23/22 02:48 36.6 C 74 16 124/74 94 08/22/22 21:31 36.7 C 73 20 137/82 96 O2 Del Method 08/23/22 07:37 Room Air 08/23/22 02:48 Room Air 08/22/22 21:31 Room Air Laboratory Results CBC obtained today shows a white count of 15.2. H&H of 8.5 and 25.8. Platelets 259,000. INR is 1.2. PRP shows sodium 139, potassium 4.0, chloride 109, BUN of 51, and creatinine 2.18. Glucose 114 and calcium 8.3. She has chronically elevated BUN and creatinine, though these are slightly higher than her normal values.
[2022-08-23 09:08] VITALS: BP 124/74; PULSE 74
== END 2022-08-23 13:02 ==
LOC: ASU 05:14 → 3E 05:14